=== PATIENT | male | born 1945 | race Caucasian/White ===

== ENCOUNTER 2020-07-25 12:31 | Emergency (ER) | payer BC ==
[~2020-07-25] VITALS: Ht 182.9 cm; Wt 83.9 kg
== END 2020-07-25 13:12 | disposition home or self-care (01) ==
LOC: ER 12:31
DX: G89.29 Other chronic pain (principal); M25.561 Pain in right knee
CPT/HCPCS: 99283

== ENCOUNTER 2023-02-02 10:15 | Emergency (ER) | payer BC ==
[~2023-02-02] VITALS: Ht 182.9 cm; Wt 86.2 kg
[2023-02-02 10:29] VITALS: BP 250/123
[2023-02-02] MEDS ORDERED: LOSA50 PO (10:37)
== END 2023-02-02 10:39 | disposition home or self-care (01) ==
LOC: ER 10:15
DX: I10 Essential (primary) hypertension (principal); Z79.899 Other long term (current) drug therapy
CPT/HCPCS: 99283

== ENCOUNTER → 2024-05-09 | Outpatient (CLI) | payer BC ==
[~2024-05-09] MED LIST: LOSA50 PO
[2024-05-09 18:58] LABS: BASOPHILS ABSOLUTE AUTO 0.02 K/mm3 (0.00-0.23); BASOPHILS PERCENT AUTO 0 % (0-2); EOSINOPHILS ABSOLUTE AUTO 0.12 K/mm3 (0.00-0.68); EOSINOPHILS PERCENT AUTO 1 % (0-6); Hematocrit 43.5 % (37.0-53.0); Hemoglobin 14.7 g/dL (13.5-17.5); IMMATURE GRAN ABSOLUTE AUTO 0.03 K/mm3 (0.00-0.10); IMMATURE GRAN PERCENT AUTO 0 % (0-1); LYMPHOCYTES ABSOLUTE AUTO 1.72 K/mm3 (0.84-5.20); LYMPHOCYTES PERCENT AUTO 19 % (21-46); MONOCYTES ABSOLUTE AUTO 0.88 K/mm3 (0.16-1.47); MONOCYTES PERCENT AUTO 10 % (4-13); Mean Corpuscular HGB 28.2 pg (26.0-34.0); Mean Corpuscular HGB Conc 33.8 g/dL (31.5-36.5); Mean Corpuscular Volume 83 fL (80-100); Mean Platelet Volume 9.9 fL (9.1-12.4); NEUTROPHILS ABSOLUTE AUTO 6.29 K/mm3 (1.96-9.15); NEUTROPHILS PERCENT AUTO 70 % (41-73); Platelet Count 266 K/mm3 (150-400); RDW Coefficient Variation 14.2 % (11.7-14.2); Red Blood Cell Count 5.22 M/mm3 (4.30-5.90); White Blood Cell Count 9.06 K/mm3 (4.00-11.30)
[2024-05-09 19:03] LABS: Bun/Creatinine Ratio 18.6 (12.0-20.0); Calcium, Blood 9.4 mg/dL (8.5-10.1); Creatinine, Blood 1.13 mg/dL (0.60-1.20); Potassium, Blood 3.7 mmol/L (3.5-5.5)
== END | disposition home or self-care (01) ==
LOC: LAB 18:53 → LAB SHORT 18:53
PROVIDERS: Physician Assistant
DX: R03.0 Elevated blood-pressure reading, without diagnosis of hypertension (principal)
CPT/HCPCS: 80048; 85025

== ENCOUNTER 2025-01-15 06:13 | Day surgery (SDC) | payer BC ==
[~2025-01-15] VITALS: Ht 182.9 cm; Wt 82.6 kg
[~2025-01-15 06:13] MED LIST changes: +AMLO5 PO; +Avapro300 MG PO; +HYDROCHLOROTH12.5 MG PO
[2025-01-15] MEDS ORDERED: CeFAZolin Sodium 2,000 MG in NS 100 ML IV SCH (06:15)
[2025-01-15] MEDS ORDERED: APAP500 MG PO (06:29)
[2025-01-15 06:38] VITALS: BP 168/94
[2025-01-15] MEDS ORDERED: CeFAZolin Sodium 2,000 MG VIAL ONE (06:48)
[2025-01-15] MEDS ORDERED: FentaNYL Citrate 50 MCG/ML 2 ML Injection ONE (06:54)
[2025-01-15] MEDS ORDERED: Dexamethasone Sod Phos 10 MG/ML 1ML VIAL ONE (06:57)
[2025-01-15] MEDS ORDERED: Ondansetron HCl 2 MG / ML 2ML Vial ONE (06:57)
[2025-01-15] MEDS ORDERED: Bupivacaine 0.5% HCl 5 MG/ML 30MLVIAL ONE (07:37)
[2025-01-15] MEDS ORDERED: ePHEDrine Sulfate 50 MG/ML 1ML Injection ONE (07:58)
[2025-01-15] MEDS ORDERED: Metoclopramide HCl 5MG / ML 2ML Vial IV PRN (08:10)
[2025-01-15] MEDS ORDERED: FentaNYL Citrate 50 MCG/ML 2 ML Injection IV PRN ×3 (08:10)
[2025-01-15] MEDS ORDERED: HYDROmorphone HCl/Pf 1MG SYR IV PRN (08:10)
[2025-01-15] MEDS ORDERED: Ondansetron HCl 2 MG / ML 2ML Vial IV PRN (08:10)
[2025-01-15] MEDS ORDERED: Ketorolac Tromethamine 30mg Vial ONE (08:18)
--- NOTE | 2025-01-15 08:56 | NUR ---
01/15/25 [id number] Arelis Bustamante ALL COUNTS CORRECT.
[2025-01-15 09:13] VITALS: BP 134/77
[2025-01-15 09:15] VITALS: BP 139/77
[2025-01-15 09:20] VITALS: BP 132/75
[2025-01-15 09:25] VITALS: BP 134/80
[2025-01-15] MEDS ORDERED: HYDROcodone 5-APAP 325 TAB PO PRN (09:30)
[2025-01-15 09:36] VITALS: BP 113/59
== END 2025-01-15 23:30 | disposition home or self-care (01) ==
LOC: ORSCMMR 06:13 → ORD 07:30 → ORSCMMR 07:30 → ORD 08:30 → ORSCMMR 08:30
PROVIDERS: Surgery
PROC: 0YU50JZ Supplement Right Inguinal Region with Synthetic Substitute, Open Approach (ICD-10-PCS; principal; 2025-01-15 07:30)
DX: K40.90 Unilateral inguinal hernia, without obstruction or gangrene, not specified as recurrent (principal); I10 Essential (primary) hypertension; Z79.899 Other long term (current) drug therapy
CPT/HCPCS: A9270; C1781; J0690; J1100; J1885; J2405; J2704; J3010; J7120